=== PATIENT | female | born 1970 ===

== ENCOUNTER → 2019-07-07 | Outpatient (CLI) | payer MEDICARE ==
[~2019-07-07] MED LIST: ACEASPCAF PO; BUTASPCAF PO; CARI350 PO; CHRO200; DULO60; DULO60 PO; ESTR2; ESTR2 PO; FISH1000; FISH1000 PO; HYDACE5 PO; LAMO100; LAMO100 PO; LIOT25; LORA1 PO; LORA10ER PO; LORA2; MULVITA; MULVITMINF PO; POLY500; PROM25 PO; QUET25; RXHYDACE PO; SERT50; TOPI100; TRAZ100; TRAZ100 PO; TRAZ50; VENL75; VENL75ER; ZOLP5
[2019-07-09 14:07] LABS: HPV 16 Negative (Negative); HPV 18 Negative (Negative); HPV OTHER HR TYPES Negative (Negative)
== END | disposition home or self-care (01) ==
LOC: LAB SHORT 14:22 → LAB 14:22
PROVIDERS: Nurse Practitioner Family
DX: Z01.411 Encounter for gynecological examination (general) (routine) with abnormal findings (principal)
CPT/HCPCS: 87624; G0145

== ENCOUNTER → 2022-06-27 | Outpatient (CLI) | payer MEDICARE ==
[2022-07-03 15:11] LABS: HPV 16 Negative (Negative); HPV 18 Negative (Negative); HPV OTHER HR TYPES Negative (Negative)
== END | disposition home or self-care (01) ==
LOC: LAB 12:00 → LAB SHORT 12:00
PROVIDERS: Nurse Practitioner Family
DX: Z01.411 Encounter for gynecological examination (general) (routine) with abnormal findings (principal); N76.0 Acute vaginitis
CPT/HCPCS: 87070; 87077; 87186; 87205